=== PATIENT | female | born 1965 | race Caucasian/White ===

== ENCOUNTER 2020-06-12 08:07 | Outpatient (NON) | payer OTHER, SELFPAY ==
[2020-06-12 19:22] LABS: SARS-CoV-2 RNA PCR Negative
== END 2020-06-12 08:08 ==
PROVIDERS: Visit Provider Nurse Practitioner Family
DX: R68.89 Other general symptoms and signs (principal)
CPT/HCPCS: 87635; C9803; U0003

== ENCOUNTER 2021-06-01 15:04 | Outpatient (CLI) | payer OTHER, SELFPAY ==
--- NOTE | ~2021-06-01 | XR_ITS ---
XR hip LT min 2V DATE: 06/01/2021 15:20 INDICATION: Left hip pain, groin pain, burning TECHNIQUE: AP, lateral and crosstable lateral views of left hip COMPARISON: None FINDINGS: There is minimal osteoarthritic spurring but relative preservation of joint space at the le ft hip. No fracture, dislocation, avascular necrosis or bone destruction. The pubic symphysis and sacroiliac joints are intact. IMPRESSION: Mild left hip osteoarthritis Reviewed, dictated and finalized at location A.
== END 2021-06-01 15:05 | disposition home or self-care (01) ==
PROVIDERS: PCP Internal Medicine; Visit Provider Internal Medicine
DX: M16.12 Unilateral primary osteoarthritis, left hip (principal)
CPT/HCPCS: 73502

== ENCOUNTER 2022-03-17 10:06 | Outpatient (CLI) | payer OTHER, SELFPAY ==
[2022-03-17 10:58] LABS: Anion Gap 6 mmol/L (8-16); Blood Urea Nitrogen 19 mg/dL (7-17); Calcium 9.3 mg/dL (8.4-10.2); Carbon Dioxide 27 mmol/L (22-30); Chloride 104 mmol/L (98-107); Estimated Glomerular Filt Rate > 60; Glucose 106 mg/dL (65-110); Potassium 4.4 mmol/L (3.4-5.0); Sodium 137 mmol/L (137-145)
== END 2022-03-17 10:07 | disposition home or self-care (01) ==
LOC: ANHLAB 10:07
PROVIDERS: PCP Internal Medicine; Visit Provider Internal Medicine
DX: R25.2 Cramp and spasm (principal); E55.9 Vitamin D deficiency, unspecified; L65.9 Nonscarring hair loss, unspecified
CPT/HCPCS: 36415; 80048; 82306; 84443

== ENCOUNTER 2022-09-06 09:21 | Outpatient (CLI) | payer OTHER, SELFPAY ==
[2022-09-06 09:59] LABS: Alanine Aminotransferase 33 U/L (6-35); Albumin Level 4.5 g/dL (3.5-5.1); Alkaline Phosphatase 78 U/L (38-126); Anion Gap 10 mmol/L (8-16); Aspartate Amino Transferase 34 U/L (14-36); Bilirubin,Total 0.9 mg/dL (0.2-1.3); Blood Urea Nitrogen 19 mg/dL (7-17); Calcium 9.3 mg/dL (8.4-10.2); Carbon Dioxide 28 mmol/L (22-30); Chloride 103 mmol/L (98-107); Cholesterol 185 mg/dL (0-200); Estimated Glomerular Filt Rate > 60; Glucose 95 mg/dL (65-110); HDL Direct 90 mg/dL; Potassium 4.2 mmol/L (3.4-5.0); Sodium 141 mmol/L (137-145); Triglycerides 110 mg/dL (<150)
[2022-09-06 10:10] LABS: LDL Cholesterol Direct 71 mg/dL
[2022-09-06 10:27] LABS: Vitamin D 25 Hydroxy 31.6 ng/mL
== END 2022-09-06 09:22 | disposition home or self-care (01) ==
PROVIDERS: PCP Internal Medicine; Visit Provider Internal Medicine
DX: E78.5 Hyperlipidemia, unspecified (principal); Z79.899 Other long term (current) drug therapy; E55.9 Vitamin D deficiency, unspecified
CPT/HCPCS: 36415; 80053; 80061; 82306

== ENCOUNTER 2023-03-17 08:10 | Outpatient (CLI) | payer OTHER, SELFPAY ==
[2023-03-17 10:02] LABS: Alanine Aminotransferase 43 U/L (6-35); Albumin Level 4.6 g/dL (3.5-5.1); Alkaline Phosphatase 62 U/L (38-126); Anion Gap 4 mmol/L (8-16); Aspartate Amino Transferase 36 U/L (14-36); Bilirubin,Total 0.9 mg/dL (0.2-1.3); Blood Urea Nitrogen 15 mg/dL (7-17); Calcium 9.4 mg/dL (8.4-10.2); Carbon Dioxide 32 mmol/L (22-30); Chloride 104 mmol/L (98-107); Cholesterol 195 mg/dL (0-200); Estimated Glomerular Filt Rate > 60; Glucose 98 mg/dL (65-110); HDL Direct 57 mg/dL; Potassium 4.4 mmol/L (3.4-5.0); Sodium 140 mmol/L (137-145); Triglycerides 80 mg/dL (<150)
[2023-03-17 10:12] LABS: LDL Cholesterol Direct 104 mg/dL
== END 2023-03-17 08:11 | disposition home or self-care (01) ==
PROVIDERS: PCP Internal Medicine; Visit Provider Nurse Practitioner Family
DX: Z00.00 Encounter for general adult medical examination without abnormal findings (principal); Z79.899 Other long term (current) drug therapy; E78.5 Hyperlipidemia, unspecified
CPT/HCPCS: 36415; 80053; 80061

== ENCOUNTER 2023-09-27 08:50 | Outpatient (CLI) | payer OTHER, SELFPAY ==
[2023-09-27 09:42] LABS: Alanine Aminotransferase 26 U/L (6-35); Albumin Level 4.4 g/dL (3.5-5.1); Alkaline Phosphatase 88 U/L (38-126); Anion Gap 7 mmol/L (8-16); Aspartate Amino Transferase 33 U/L (14-36); Bilirubin,Total 0.8 mg/dL (0.2-1.3); Blood Urea Nitrogen 18 mg/dL (7-17); Calcium 9.4 mg/dL (8.4-10.2); Carbon Dioxide 29 mmol/L (22-30); Chloride 105 mmol/L (98-107); Cholesterol 204 mg/dL (0-200); Estimated Glomerular Filt Rate > 60; Glucose 100 mg/dL (65-110); HDL Direct 84 mg/dL; Potassium 4.8 mmol/L (3.4-5.0); Sodium 141 mmol/L (137-145); Triglycerides 82 mg/dL (<150)
[2023-09-27 09:52] LABS: LDL Cholesterol Direct 91 mg/dL
[2023-09-27 10:00] LABS: Vitamin D 25 Hydroxy 34.7 ng/mL
== END 2023-09-27 08:51 | disposition home or self-care (01) ==
LOC: ANHLAB 08:52
PROVIDERS: PCP Nurse Practitioner; Visit Provider Nurse Practitioner
DX: E78.5 Hyperlipidemia, unspecified (principal); E55.9 Vitamin D deficiency, unspecified
CPT/HCPCS: 36415; 80053; 80061; 82306

== ENCOUNTER 2024-01-17 17:15 | Emergency (ER) | payer OTHER, SELFPAY ==
[2024-01-17] VITALS (8 sets, daily range): BP systolic 138–164; BP diastolic 87–99; PULSE 78–87; RESP 12–20; TEMP 36.3; O2SAT 97–100
--- NOTE | ~2024-01-17 | XR_ITS ---
EXAMINATION: XR chest 1V DATE: 01/17/2024 19:24 INDICATION: Headache. Weakness. TECHNIQUE: A single frontal view of the chest was obtained. COMPARISON: None. FINDINGS: There is no pneumonia, pleural effusion, or pneumothorax. The heart size is normal. IMPRESSION: 1. No acute cardiopulmonary disease. Reviewed, dictated and finalized at location E. BURNER SUPERVISOR
--- NOTE | ~2024-01-17 | CT_ITS ---
EXAMINATION: CT brain wo con DATE: 01/17/2024 19:20 INDICATION: Headache. TECHNIQUE: Computed tomography (CT) of the head was performed without intravenous contrast. The mA wa s adjusted according to patient size. Iterative reconstruction technique was employed. The dose-lengt h product was 605.33 mGy-cm. COMPARISON: None FINDINGS: There is no intracranial hemorrhage, acute infarction, or abnormal intracranial mass lesion . The ventricles are normal in size. There is mild mucosal thickening in the paranasal sinuses. The o rbits are normal. The mastoid air cells are normal. IMPRESSION: 1. Normal brain. Reviewed, dictated and finalized at location E. WRITERS FUNCTIONAL TESTER IMPRESSION: 1. Normal brain.
--- NOTE | 2024-01-17 18:49 | ED.GENADULT ---
HPI - General Adult General Chief complaint: Recheck/Abnormal Lab/Rx Stated complaint: BACK S/P HIP INJECTION,NAUSEA,SHAKEY,VISION CHANGES Time Seen by Provider: 01/17/24 18:49 Source: patient Mode of arrival: ambulatory Limitations: no limitations History of Present Illness HPI narrative: 58 years old white female drove herself to the emergency room complaining of sudden onset of headache, blurry vision, often on nausea, shaky feeling and ?a very feeling all over started 1 hour after having hip cortisone shot yesterday noon. Patient had 5 previous cortisone shot before without any complication. Patient have a lot of stress at work. She denies any fever, chills, vomiting, chest pain, shortness of breath or back pain. History of hyperlipidemia, does not smoke cigarettes or marijuana, drinks occasionally. She denies any focal neuro deficit. Currently her symptoms are much better than yesterday, are improving. Related Data Home Medications Medication Instructions Recorded Confirmed calcium carbonate 600 mg-vitamin cap PO BID 06/01/21 03/21/23 D3 5 mcg (200 unit) capsule melatonin 10 mg capsule 10 mg PO QHS 06/01/21 03/21/23 acetaminophen 325 mg tablet 325 mg PO Q6H PRN 10/18/21 03/21/23 (Tylenol) Allergies Allergy/AdvReac Type Severity Reaction Status Date / Time Penicillins Allergy Unknown Unknown Verified 01/17/24 19:35 Sulfa (Sulfonamide Allergy Unknown Unknown Verified 01/17/24 19:35 Antibiotics) Tetanus Vaccines and Toxoid Allergy Unknown Unknown Verified 01/17/24 19:35 Review of Systems Review of Systems: All systems reviewed & are unremarkable except as noted in HPI and below PMFSH Family History Family History Mother Hypertension Father Family history of lung cancer Other Family history of malignant neoplasm of cervix Family history of throat cancer Social History Social History Smoking status: Never smoker Second hand tobacco smoke exposure: Yes Alcohol intake: current Drinks per week: 6 Alcohol use details: wine Substance use: never Substance use type: does not use Lack of Transportation: No Lack of Food: Never True Current Housing: I Have Housing Concerned About Future Housing: No Difficulty Paying Gas/Electric Bills: No Difficulty Paying for Meds: No Currently Unemployed: No Education: Associate Degree Difficulty w/ Childcare or Family Care: No Exam Narrative: General appearance: Well-developed, well-nourished Skin: Normal color Head: Normocephalic, nontraumatic Eyes: Clear conjunctiva ENT: Oropharynx normal, ears normal, nose normal Neck: Supple, nontender Chest and respiratory: Airway patent, no respiratory distress, no accessory muscle use Heart: Regular rate/rhythm Abdomen: Soft, nontender, no organomegaly, quiet bowel sounds Vascular: Normal peripheral pulses, normal capillary refill. Musculoskeletal: Normal range of motion, nontender back Neurologic: Alert and oriented ?3, TRAFFIC AGENT is normal as tested, no gross motor deficit Course Vital Signs Vital signs: Vital Signs Temperature 36.3 C L 01/17/24 17:17 Pulse Rate 87 01/17/24 17:17 Respiratory Rate 01/17/24 17:17 Blood Pressure 164/91 H 01/17/24 17:17 Pulse Oximetry 100 01/17/24 17:17 Oxygen Delivery Room Air 01/17/24 17:17 Temperature 36.3 C L 01/17/24 17:17 Pulse Rate 87 01/17/24 17:17 Respiratory Rate 20 01/17/24 17:17 Blood Pressure 164/91 H 01/17/24 17:17 Pulse Oximetry 100 01/17/24 17:17 Oxygen Delivery Room Air 01/17/24 17:17 Medical Decision
--- NOTE | 2024-01-17 18:50 | ECG_ITS ---
Measurements Intervals [place] Rate: 82 P: 28 MA: 131 QRS: -1 QRSD: 85 T: 30 QT: 354 QTc: 414 Interpretive Statements SINUS RHYTHM NORMAL ECG NO PREVIOUS ECG AVAILABLE FOR COMPARISON Electronically Signed On 01-18-2024 12:19:08 BOILER OR ENGINE OPERATOR by Hugo Iyer M.D.
[2024-01-17 19:23] LABS: Appearance Urine Clear (Clear); Bacteria Urine None Seen /hpf; Bilirubin Urine Negative (Negative); Blood Urine Negative (Negative); Color Urine Yellow (Yellow); Glucose Urine UA Negative (Negative); Ketones Urine Negative (Negative); Leukocyte Esterase Ur Trace LEU/UL (Negative); Nitrate Urine Negative (Negative); Non Pathogenic Casts 0-2; Protein Urine Negative (Negative); RBC Urine 0-2 /hpf (0-2); Specific Grav Ur 1.006 (1.001-1.035); Squamous Epithelial Cell Urine None seen /hpf (Few); Urobilinogen Urine 0.2 mg/dL (<2.0); WBC Urine 0-5 /hpf
[2024-01-17 19:24] LABS: Add Urine Microscopic? YES; Basophils Percent Auto 0.2 % (0.2-1.2); Hematocrit 43.2 % (37.0-47.0); Hemoglobin 14.3 g/dL (12.0-15.0); Immature Granulocyte Absolute 0.09 K/mm3 (0.00-0.031); Immature Granulocyte Percent A 0.7 % (0-0.5); Lymphocytes Absolute Auto 1.27 K/mm3 (0.9-3.2); Lymphocytes Percent Auto 10.1 % (18.3-44.2); Mean Corpuscular HGB Conc 33.1 g/dl (32-36); Mean Corpuscular Hemoglobin 31.3 pg (26-34); Mean Corpuscular Volume 94.5 fl (80-100); Mean Platelet Volume 9.8 fl (7.4-10.4); Monocytes Absolute Auto 0.5 K/mm3 (0.1-0.6); Monocytes Percent Auto 3.6 % (2.6-8.5); Neutrophils Absolute Auto 10.8 K/mm3 (1.3-6.7); Neutrophils Percent Auto 85.4 % (45.5-73.1); Platelet Count Result 215 k/mm3 (150-375); Red Blood Count 4.57 M/mm3 (4.2-5.4); Red Cell Distribution Width 12.6 % (11.5-14.5); White Blood Count 12.6 K/mm3 (4.5-10.0)
[2024-01-17] MEDS: SODIUM CHLORIDE 0.9% IV 1,000 ML 999 ML IV CONT (19:36)
[2024-01-17 19:38] LABS: Alanine Aminotransferase 42 U/L (6-35); Albumin Level 5.1 g/dL (3.5-5.1); Alkaline Phosphatase 56 U/L (38-126); Anion Gap 10 mmol/L (8-16); Aspartate Amino Transferase 43 U/L (14-36); Bilirubin,Total 1.1 mg/dL (0.2-1.3); Blood Urea Nitrogen 23 mg/dL (7-17); Calcium 10.1 mg/dL (8.4-10.2); Carbon Dioxide 24 mmol/L (22-30); Chloride 104 mmol/L (98-107); Creatine Kinase 61 U/L (30-135); Estimated CRCL calculation 64 ml/min; Estimated Glomerular Filt Rate > 60; Glucose 112 mg/dL (65-110); Potassium 4.3 mmol/L (3.4-5.0); Sodium 138 mmol/L (137-145)
== END 2024-01-17 20:36 | disposition home or self-care (01) ==
PROVIDERS: Emergency Provider Emergency Medicine; PCP Nurse Practitioner
DX: R51.9 Headache, unspecified (principal)
CPT/HCPCS: 36415; 70450; 71045; 80053; 81001; 82550; 85025; 93005; 96360; 99284; J7030

== ENCOUNTER 2024-03-25 12:31 | Outpatient (CLI) | payer OTHER, SELFPAY ==
[2024-03-25 13:05] LABS: Basophils Percent Auto 0.3 % (0.2-1.2); Eosinophils Percent Auto 0.6 % (0-4.4); Hematocrit 43.3 % (37.0-47.0); Hemoglobin 14.6 g/dL (12.0-15.0); Immature Granulocyte Absolute 0.03 K/mm3 (0.00-0.031); Immature Granulocyte Percent A 0.5 % (0-0.5); Lymphocytes Absolute Auto 1.83 K/mm3 (0.9-3.2); Lymphocytes Percent Auto 28.8 % (18.3-44.2); Mean Corpuscular HGB Conc 33.7 g/dl (32-36); Mean Corpuscular Hemoglobin 31.9 pg (26-34); Mean Corpuscular Volume 94.5 fl (80-100); Mean Platelet Volume 9.6 fl (7.4-10.4); Monocytes Absolute Auto 0.5 K/mm3 (0.1-0.6); Monocytes Percent Auto 8.3 % (2.6-8.5); Neutrophils Absolute Auto 3.9 K/mm3 (1.3-6.7); Neutrophils Percent Auto 61.5 % (45.5-73.1); Platelet Count Result 173 k/mm3 (150-375); Red Blood Count 4.58 M/mm3 (4.2-5.4); Red Cell Distribution Width 11.9 % (11.5-14.5); White Blood Count 6.4 K/mm3 (4.5-10.0)
[2024-03-25 13:18] LABS: Alanine Aminotransferase 33 U/L (6-35); Albumin Level 4.9 g/dL (3.5-5.1); Alkaline Phosphatase 60 U/L (38-126); Amylase 58 U/L (30-110); Anion Gap 9 mmol/L (4-12); Aspartate Amino Transferase 42 U/L (14-36); Bilirubin,Total 1.3 mg/dL (0.2-1.3); Blood Urea Nitrogen 7 mg/dL (7-17); Calcium 10.1 mg/dL (8.4-10.2); Carbon Dioxide 27 mmol/L (22-30); Chloride 104 mmol/L (98-107); Estimated Glomerular Filt Rate > 60; Glucose 99 mg/dL (65-110); Lipase 108 U/L (23-300); Potassium 3.9 mmol/L (3.4-5.0); Sodium 140 mmol/L (137-145)
== END 2024-03-25 12:32 | disposition home or self-care (01) ==
PROVIDERS: PCP Nurse Practitioner; Visit Provider Nurse Practitioner Family
DX: R10.9 Unspecified abdominal pain (principal); R19.7 Diarrhea, unspecified
CPT/HCPCS: 36415; 80053; 82150; 83690; 85025

== ENCOUNTER 2024-03-28 13:09 | Outpatient (CLI) | payer OTHER, SELFPAY ==
[2024-04-01 16:54] LABS: Rotavirus Stool Not Detected
[2024-04-01 17:03] LABS: Norovirus RNA PCR, Stool Not Detected
== END 2024-03-28 13:10 | disposition home or self-care (01) ==
LOC: ANHLAB 13:10
PROVIDERS: PCP Nurse Practitioner; Visit Provider Nurse Practitioner Family
DX: R11.10 Vomiting, unspecified (principal); R19.7 Diarrhea, unspecified; R10.9 Unspecified abdominal pain
CPT/HCPCS: 87045; 87177; 87209; 87425; 87427; 87449; 87798; 89055

== ENCOUNTER 2024-04-24 08:28 | Outpatient (CLI) | payer OTHER, SELFPAY ==
--- NOTE | ~2024-04-24 | CT_ITS ---
CT of the Abdomen and Pelvis: Indication: Abdominal pain Technique: 2.5 mm axial scans were obtained through the abdomen and pelvis following intravenous adm inistration of 100 cc of Omnipaque 350. Dose reduction technique was used on this scan by utilizing a utomated exposure control and iterative reconstruction technique. The dose-length product (DLP) was 4 26.38 mGy-cm. Findings: Scans through the lung bases are unremarkable. The liver, spleen, pancreas, gallbladder, adrenals and kidneys are within normal limits. No evidence of aortic aneurysm. 1.3 cm peripherally calcified splenic artery aneurysm noted. No lymphadenopathy. No bowel obstruction or bowel wall thickening. There is no evidence to suggest acute appendicitis. Images through the pelvis were performed. Urinary bladder unremarkable. No pelvic mass seen. No ascit es. Impression: No acute abnormality. 1.3 cm peripherally calcified splenic artery aneurysm. Reviewed, dictated and finalized at [facility]. Impression: No acute abnormality. 1.3 cm peripherally calcified splenic artery aneurysm.
== END 2024-04-24 08:29 | disposition home or self-care (01) ==
PROVIDERS: PCP Nurse Practitioner Family; Visit Provider Nurse Practitioner Family
DX: I72.8 Aneurysm of other specified arteries (principal); R11.10 Vomiting, unspecified; R19.7 Diarrhea, unspecified
CPT/HCPCS: 74177; Q9967

== ENCOUNTER 2025-04-11 08:41 | Outpatient (CLI) | payer OTHER, SELFPAY ==
--- OUTSIDE RECORDS SUMMARY | 2025-04-11 08:50 | XMS_ITS | Clinical Summary ---
Author Organization [facility] Address [address] [address] Care Team Providers Care Applique Cutter Name Role Phone Foreign Hamm MD Primary Care Provider [phone] Source Comments [facility],non-owned Affiliates and Associated Physician Practices is amultiple site organization consisting of ambulatory clinics and hospital sitesin [place], [place], [place] and [place]. This disclosure is being madepursuant to the Care Everywhere program and may not contain all information available regarding this patient. Last updated 18.[facility] Allergies Active Allergy Reactions Criticality Noted Date Comments Penicillins 07/21/2017 Sulfa Drugs 07/21/2017 Tetanus Toxoid 07/21/2017 Medications * Be aware that medications may not be up to date on this document. Alwaysverify current medications with the patient. Calcium Citrate-Vitamin D (CALCIUM + D PO) Act ashkan Family History Medical History Relation Name Comments Cancer - Lung Father Hypertension Mother Relation Name Status Comments Father Mother Social History Tobacco Use Types Packs/Day Years Used Date Smoking Tobacco: Never Smokeless Tobacco: Never Comments No Sex and Gender Information Value Date Recorded Sex Assigned at Not on file Legal Sex Female 7:05 AM CDT Gender Identity Not on file Sexual Orientation Not on file Last Filed Vital Signs Vital Sign Reading Time Taken Comments Blood Pressure 126/82 07/21/2017 10:14 AM CDT Pulse 84 07/21/2017 10:14 AM CDT Temperature 37.1 C (98.7 F) 07/21/2017 10:14 AM CDT Respiratory Rate 16 07/21/2017 10:14 AM CDT Oxygen Saturation 97% 07/21/2017 10:14 AM CDT Inhaled Oxygen Concentration - - Weight 70.3 kg (155 lb) 07/21/2017 10:14 AM CDT Height 162.6 cm (5' 4 ) 07/21/2017 10:14 AM CDT Body Mass Index 26.61 07/21/2017 10:14 AM CDT Plan of Treatment Health Maintenance Due Date Last Done Comments COLOGUARD (AGES 45-75) - COL ON CA SCREENING 1963 COLON MONITORING 1963 COLONOSCOPY - COLON CA SCREENING 1963 CT COLONOGRAPHY - COLON CA SCREENING 1963 Colorectal Cancer Screening 1963 FIT - COLON CA SCREENING 1963 FLEX SIG - COLON CA SCREENING 1963 LIPID TESTING 1963 MAMMOGRAM 1963 HIV SCREENING 1978 HEPATITIS C SCREENING 10/22/1981 DTAP/TDAP/TD VACCINES (1 - Tdap) 1982 PNEUMOCOCCAL VACCINE 50+ (1 of 1 - PCV) 2013 ZOSTER VACCINE (1 of 2) 2013 SCREENING FOR DIABETES 07/21/2017 COVID-19 VACCINE (1 - 2023-2 5 season) 2024 DEPRESSION SCREENING 11/27/2024 INFLUENZA VACCINE (Season Ended) 2025 Respiratory Syncytial Virus (RSV) Vaccine Pt: or over 60 yrs (1 - 1-dose 75+ series) 2038 HEPATITIS B VACCINE Aged Out No longe r eligible based on patient's age to complete this topic HIB VACCINE Aged Out No longer eligi ble based on patient's age to complete this topic HPV VACCINE Aged Out No longer eligi ble based on patient's age to complete this topic MENINGOCOCCAL (Group B) VACC INE SHARED DECISION-MAKING Aged Out No longer eligibl e based on patient's age to complete this topic MENINGOCOCCAL GROUPS A/C/Y/W VACCINE Aged Out No longer eligible b ased on patient's age to complete this topic Insurance AETNA Care Teams Applique Cutter Relationship Specialty Start Date End Date Foreign Hamm MD [address] [place] [address] PCP - General Family Medicine 07/21/17
--- OUTSIDE RECORDS SUMMARY | 2025-04-11 08:50 | XMS_ITS | Clinical Summary ---
Author Organization [facility] Address [address] [place] [address] Care Team Providers Care Sheet Manufacturing Supervisor Name Role Phone Hodan Ponce NP Primary Care Provider [phone] Allergies Active Allergy Reactions Criticality Noted Date Comments Penicillins Other (See comments) Low 07/18/2012 As a child-unknown Sulfa (Sulfonamide Antibiotics) Hives,Rash Medium 07/18/2012 Tetanus Immune Globulin Other (See comments) Low As a child-unknown Medications calcium citrate-vitamin D3 (CITRACAL+D) 315-200 mg-unit per tablet Take by mouth. Active meloxicam (MOBIC) 7.5 mg tablet 12/20/2018 Active melatonin 10 mg tablet extended release Take by mouth. Active acetaminophen (TYLENOL) 500 mg tablet Take 1 tablet (500 mg total) by mouth every 6 (six) hours as needed for pain Active atorvastatin (LIPITOR) 10 mg tablet 08/24/2021 Active cyclobenzaprine (FLEXERIL) 10 mg tablet 10 MG ORALLY THREE TIMES A DAY NEEDED FOR MUSCLE SPASM 09/29/2023 Active fezolinetant (VEOZAH) tablet tabletIndication s:Vasomotor symptoms due to menopause Take 1 tablet (45 mg total) by mouth daily 90 tablet 3 10/08/2024 Active Active Problems Problem Noted Date Diagnosed Date Headache(784.0) 08/08/2017 Cervical radiculopathy 10/18/2016 Neck pain 10/18/2016 Shoulder pain 10/17/2016 Dermatitis of eyelid 01/17/2014 Encounter for gynecological examination without abnormal finding 10/21/2013 Osteoporosis 10/21/2013 Screening for endocrine/metabolic/immunity disor ders 10/21/2013 Thyroid disorder screening 10/21/2013 Encounters Date Type Department Care Team Description 02/20/2025 8:26 AM CDT - 02/20/2025 11:59 PM CDT Hospital Encounter [facility] ([facility]) [address] [id number] Screening mammogram, encounter for Discharge Disposition: Discharge to home or self care from Last 3 Months Immunizations Immunization Administration Dates Next Due Influenza, Quadrivalent, Lela l Culture-based MDCK, Preservative Free, Antibiotic Free, Intramuscular 08/27/2019,09/05/2018,09/04/2018,10/25 Influenza, Quadrivalent, Spl it, Preservative Free, Intramuscular 08/24/2020,08/22/2016 Influenza, Trivalent, Preser vative Free, Intramuscular 07/28/2016,08/31/2015 Surgical History Surgery Date Site/Laterality Comments [place] NEURP MAJOR PRPH NRV ARM/LEG OPN OTH/THN SPEC Neuroplasty Ulnar Nerve - (Added by TW Conv) ULNAR NERVE TRANSPOSITION 11/27/2014 - 11/26/2015 Right FLUORO GUIDED ASPIRATION OR INJECTION LARGE JOINT LEFT 01/11/2019 Left FL FLUORO GUIDED INJECTION HIP LEFT 04/15/2020 Left FL FLUORO GUIDED INJECTION HIP LEFT 04/07/2021 Left KNEE ARTHROSCOPY W/ LATERAL RELEASE Right ulnar nerve transposition 06-12-2015 FL FLUORO GUIDED INJECTION HIP LEFT 12/01/2022 Left FLUORO GUIDED ASPIRATION OR INJECTION LARGE JOINT LEFT 01/16/2024 Left Medical History Medical History Date Comments Pain in shoulder Shoulder joint pain - (Added by TW Conv) Personal history of healed t raumatic fracture History of fracture of wrist - (Added by TW Conv) Neuromuscular disorder (HCC) Urinary tract infection Labral tear of hip joint High cholesterol Family History Medical History Relation Name Comments Heart disease Brother Adalberto Sams Jr. Hyperlipidemia Brother Adalberto Sams Jr. Hypertension Brother Adalberto Sams Jr. Family hist ory of hypertension - (Added by TW Conv) Breast cancer Cousin Family history of malignant neoplasm of breast - (Added by TW Conv) Cancer Father Adalberto Sams, Sr. Lung cancer Father Adalberto Sams, Sr. Family hist ory of lung cancer - (Added by TW Conv) Cancer Maternal Grandfather Blair Tay Heart attack Maternal Grandmother Elvira Tay Heart disease Maternal Grandmother Elvira Tay Arthritis Mother Elvira Tay Hearing loss Mother Elvira Tay Heart disease Mother Elvira Tay Family histo ry of cardiovascular disease - (Added by TW Conv)/Family history of cardiac disorder - (Added by TW Conv) Hyperlipidemia Mother Elvira Tay Hypertension Mother Elvira Tay Family histor y of hypertension - (Added by Conv) Lung cancer Mother Elvira Tay Heart disease Other 1 Family history of cardiac disorder - Relation: Grandparent (Added by TW Conv) Ovarian cancer Other 2 Family histor y of ovarian cancer - Relation: Grandmother (Added by Conv) Heart attack Paternal Grandfather Ino Sams Cancer Paternal Grandmother Mei Sams Relation Name Status Comments Brother Adalberto Sams Jr. Cousin Father Adalberto Latrell, Sr. Maternal Grandfather Blair Tay Maternal Grandmother Elvira Tay Mother Elvira Tay Alive Other 1 Other 2 Paternal Grandfather Ino Latrell Paternal Grandmother Mei Sams Social History Tobacco Use Types Packs/Day Years Used Date Smoking Tobacco: Never Smokeless Tobacco: Never Alcohol Use Standard Drinks/Week Comments Yes 0 (1 standard drink = 0.6 oz pur e alcohol) AUDIT-C Answer Date Recorded Q1: How often do you have a drink containing alc ohol? 2-4 times a month 10/08/2024 Q2: How many drinks containi ng alcohol do you have on a typical day when you are drinking? 1 or 2 10/08/2024 Q3: How often do you have si x or more drinks on one occasion? 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 Not on file Obstetrics History Para Term AB IAB SAB Ectopic Multiple Livin g Live Births 0 0 0 0 0 0 0 0 0 0 0 Comments 3 stepchildren Last Filed Vital Signs Vital Sign Reading Time Taken Comments Blood Pressure 145/89 10/08/2024 12:43 PM FORENSIC PSYCHOLOGIST Pulse 76 10/08/2024 12:43 PM FORENSIC PSYCHOLOGIST Temperature - - Respiratory Rate 16 12/01/2022 8:22 AM FORENSIC PSYCHOLOGIST Oxygen Saturation 100% 12/01/2022 9:04 AM FORENSIC PSYCHOLOGIST Inhaled Oxygen Concentration - - Weight 71.6 kg (157 lb 12.8 oz) 024 12:43 PM FORENSIC PSYCHOLOGIST Height 162.6 cm (5' 4.02 ) 10/08/2024 1 2:43 PM FORENSIC PSYCHOLOGIST Body Mass Index 27.07 10/08/2024 12:43 PM FORENSIC PSYCHOLOGIST Plan of Treatment Health Maintenance Due Date Last Done Comments Colon Cancer Screening-Colonoscopy 1963 Depression Screening 1963 Hepatitis C Screening 1963 DTaP/Tdap/Td Vaccine (1 - Tdap) 1974 Hepatitis B Screening 1981 Zoster Vaccine (1 of 2) 2013 Regular Well Visit/Exam 18-64 01/15/2020 01/15/2019 Influenza Vaccine (Season Ended) 2025 08/24/2020, 08/27/2019, 09/05/2018, Additional history exists Cervical Cancer Screening 10/08/20252023, 10/08/2024, 01/09/2018 Breast Cancer Screening-Mammogram 02/20/2026 02/20/2025, 01/04/2024, 12/22/2022, Additional history exists Pneumococcal vaccine <65 Aged Out No longer eligible based on patient's age to complete this topic Procedures Procedure Name Priority Date/Time Associated Diagnosis Comments SCREENING MAMMOGRAM BILATERAL W TRAE Schedule Routine, Read Routine (OP Routine) 02/20/2025 8:40 AM CDT Screening mammogram, encounter for HIGH RISK HPV DNA DETECTION WITH GENOTYPING Routine 10/08/2024 1:49 PM FORENSIC PSYCHOLOGIST Encounter for annual routine gynecological examination from Last 3 Months or Most Recently Relevant to Health Maintenance Results * Screening Mammogram Bilateral W Trae (02/20/2025 8:40 AM CDT) Anatomical Region Laterality Modality Breast Bilateral Mammography Narrative 02/20/2025 12:41 PM CDT Mammogram Technique: Bilateral Digital Breast Tomosynthesis, Bilateral C-view 2D Screening mammogram. Views obtained: bilateral craniocaudal and bilateral mediolateral oblique. Computer Aided Detection was performed. Mammogram Findings: The present examination has been compared to prior imaging studies performed at [facility] on 11/11/2021, 12/22/2022 and 01/04/2024. There are scattered areas of fibroglandular density. There is no suspicious abnormality in either breast. Impression: There is no mammographic evidence of malignancy. Annual screening mammography is recommended. OVERALL FINAL ASSESSMENT: BI-RADS CATEGORY 1: Negative. Procedure Note Jhonathan Hoffman MD - 02/20/2025 Mammogram Technique: Bilateral Digital Breast Tomosynthesis, Bilateral C-view 2D Screening mammogram. Views obtained: bilateral craniocaudal and bilateral mediolateral oblique. Computer Aided Detection was performed. Mammogram Findings: The present examination has been compared to prior imaging studies performed at [facility] on 11/11/2021, 12/22/2022 and 01/04/2024. There are scattered areas of fibroglandular density. There is no suspicious abnormality in either breast. Impression: There is no mammographic evidence of malignancy. Annual screening mammography is recommended. OVERALL FINAL ASSESSMENT: BI-RADS CATEGORY 1: Negative. us Self Screening Mammogram IMG MAMMO PROCEDURES Fi nal Result * High Risk HPV DNA Detection with Genotyping (Molecular component) (10/08/2024 1:49 PM FORENSIC PSYCHOLOGIST) HPV HR 16 Not Detected Not Detected [facility] HPV HR 18 Not Detected Not Detected [facility] HPV HR Non 16/18 Not Detected Not Detected [facility] Comment: Interpretive Data Nucleic acid amplification for detection of high-risk Human Papilloma virus (HPV) is performed by the Antonio Calil 6800 HPV test. This assay specifically detects HPV-16 and HPV-18 genotypes. The following HPV genotypes are detected as high-risk HPV: HPV-31, 33, 35, ,39, 45, 51, 52, 56, 58, 59, 66, and 68. This assay has been approved by the [place] Food and Drug Administration for detection of HPV in cervical specimens collected by a physician using an endocervical brush/spatula or cervical broom and placed in the ThinPrep Pap Test PreservCyt collection containers. The performance characteristics of this test have been verified by the [facility] Molecular Infectious Disease laboratory. Correlate with separately reported cytology results, as applicable. Interpretive data last revised 23 Endocervical 10/08/2024 1:49 PM FORENSIC PSYCHOLOGIST 10/09/2024 10:53 AM FORENSIC PSYCHOLOGIST Narrative [facility] - 10/10/2024 3:32 AM FORENSIC PSYCHOLOGIST Clinical history and diagnosis->postmenopausal Number of vials->1 Testing type->Screening Last menstrual period (date if known)->menopausal Lizbeth Miller MD LAB BODY FLUIDS AND STOOLS OR DERABLES Final Result Performing Organization Address City/State/[facility] Co de Phone Number [facility] [place] [address] [facility] from Last 3 Months or Most Recently Relevant to Health Maintenance Insurance [facility] [employer] HMO [facility] Care Teams Sheet Manufacturing Supervisor Relationship Specialty Start Date End Date Hodan Ponce NP [address] [id number] PCP - General Nurse Practitioner 10/08/24
--- OUTSIDE RECORDS SUMMARY | 2025-04-11 08:50 | XMS_ITS | Encounter Summary ---
Author Organization [facility] Address [address] [place] [address] Care Team Providers Care Morning News Producer Name Role Phone Foreign Hamm MD Primary Care Provider [phone] Bal Welch DO Primary Care Provider [phone] Bryant Wild SAMPLE WASHER Primary Care Provider Hodan Ponce SAMPLE WASHER Primary Care Provider [phone] Encounter Details Date Type Department Care Team (Late st Contact Info) Description 04/14/2020 Telephone [facility] Radiology [address] [place] [address] Vandana Abreu, VITALY Social History Tobacco Use Types Packs/Day Years Used Date Smoking Tobacco: Never Smokeless Tobacco: Never Alcohol Use Standard Drinks/Week Comments Yes 0 (1 standard drink = 0.6 oz pur e alcohol) Exercise Vital Sign Answer Date Recorde d Days of Exercise per Week 4 days 2018 Minutes of Exercise per Session 60 min 05/06/2019 Comments No Sex and Gender Information Value Date Recorded Sex Assigned at Not on file Legal Sex Female 12:57 AM BUILD TECHNICIAN Gender Identity Not on file Sexual Orientation Not on file 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 Not on file documented as of this encounter Plan of Treatment Not on file documented as of this encounter Visit Diagnoses Not on filedocumented in this encounter Care Teams Morning News Producer Relationship Specialty Start Date End Date Foreign Hamm MD [address] [place] [address] PCP - General 12/12/17 09/06/20 Bal Welch DO [address] [place] [address] PCP - General Internal Medicine 09/07/20 12/04/23 Bryant Wild NP [address] [address] PCP - General Nurse Practitioner 12/05/23 10/07/24 Hodan Ponce NP [address] [address] PCP - General Nurse Practitioner 10/08/24 documented as of this encounter
--- OUTSIDE RECORDS SUMMARY | 2025-04-11 08:50 | XMS_ITS | Referral Summary ---
Author Organization [facility] Address [address] [place] [id number] Care Team Providers Care Call Center Associate Name Role Phone Hodan Ponce NP Primary Care Provider [phone] Encounters Date Type Department Care Team Description 02/20/2025 8:26 AM CDT - 02/20/2025 11:59 PM CDT Hospital Encounter [facility] Breast [facility] ([facility]) [address] [place] [phone] Screening mammogram, encounter for Discharge Disposition: Discharge to home or self care from Last 3 Months Allergies Active Allergy Reactions Criticality Noted Date [...] disor ders 10/21/2013 Thyroid disorder screening 10/21/2013 Immunizations Immunization Administration Dates Next Due Influenza, Quadrivalent, Lela l Culture-based MDCK, Preservative Free, Antibiotic Free, Intramuscular 08/27/2019,09/05/2018,09/04/2018,10/25 Influenza, Quadrivalent, Spl it, Preservative Free, Intramuscular 08/24/2020,08/22/2016 Influenza, Trivalent, Preser vative Free, Intramuscular 07/28/2016,08/31/2015 Social History Tobacco Use Types Packs/Day Years [...] on file 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 Gender Identity Not on file Sexual Orientation Not on file 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 Not on file Last Filed Vital Signs Vital Sign Reading Time Taken Comments Blood Pressure 145/89 10/08/2024 12:43 PM WARD SECRETARY Pulse 76 10/08/2024 12:43 PM WARD SECRETARY Temperature - - Respiratory Rate 16 12/01/2022 8:22 AM WARD SECRETARY Oxygen Saturation 100% 12/01/2022 9:04 AM WARD SECRETARY Inhaled Oxygen Concentration - - Weight 71.6 kg (157 lb 12.8 oz) 024 12:43 PM WARD SECRETARY Height 162.6 cm (5' 4.02 ) 10/08/2024 1 2:43 PM WARD SECRETARY Body Mass Index 27.07 10/08/2024 12:43 PM WARD SECRETARY Plan of Treatment Not on file Procedures Procedure Name Priority Date/Time Associated Diagnosis Comments SCREENING MAMMOGRAM BILATERAL W TRAE Schedule Routine, Read Routine (OP Routine) 02/20/2025 8:40 AM CDT Screening mammogram, encounter for HIGH RISK HPV DNA DETECTION WITH GENOTYPING Routine 10/08/2024 1:49 PM WARD SECRETARY Encounter for annual routine gynecological examination from [...] compared to prior imaging studies performed at [facility] on 11/11/2021, 12/22/2022 and 01/04/2024. There are [...] compared to prior imaging studies performed at [facility] on 11/11/2021, 12/22/2022 and 01/04/2024. There are scattered areas of fibroglandular density. There is no suspicious abnormality in either breast. Impression: There is no mammographic evidence of malignancy. Annual screening mammography is recommended. OVERALL FINAL ASSESSMENT: BI-RADS CATEGORY 1: Negative. Self Screening Mammogram IMG MAMMO PROCEDURES Fi nal Result * High Risk HPV DNA Detection with Genotyping (Molecular component) (10/08/2024 1:49 PM WARD SECRETARY) HPV HR 16 Not Detected Not Detected [facility] HPV HR 18 Not Detected Not Detected TAMI [facility] HPV HR Non 16/18 Not Detected Not Detected TAMI [facility] Comment: Interpretive Data Nucleic acid amplification for detection of high-risk Human Papilloma virus (HPV) is performed by the Antonio Calli 6800 HPV test. This assay specifically detects [...] test have been verified by the [facility] Molecular Infectious Disease laboratory. Correlate with separately reported cytology results, as applicable. Interpretive data last revised 23 Endocervical 10/08/2024 1:49 PM WARD SECRETARY 10/09/2024 10:53 AM WARD SECRETARY Narrative [facility] - 10/10/2024 3:32 AM WARD SECRETARY Clinical history and diagnosis->postmenopausal Number of vials->1 Testing type->Screening Last menstrual period (date if known)->menopausal Lizbeth Miller MD LAB BODY FLUIDS AND STOOLS OR DERABLES Final Result [facility] Department [place] [address] [facility] from Last 3 Months or Most Recently Relevant to Health Maintenance Insurance [facility] H[facility] HMO Care Teams Call Center Associate Relationship Specialty Start Date End Date Hodan Ponce NP [address] [place] [address] PCP - General Nurse Practitioner 10/08/24
--- OUTSIDE RECORDS SUMMARY | 2025-04-11 08:50 | XMS_ITS | Encounter Summary ---
Author Organization [facility] Address [address] [place] [address] Care Team Providers Care Marble Carver Name Role Phone Foreign Hamm MD Primary Care Provider [phone] Bal Welch DO Primary Care Provider [phone] Bryant Wild ADVERTISER Primary Care Provider [phone] Hodan Ponce ADVERTISER Primary Care Provider [phone] Encounter Details Date Type Department Care Team (Late st Contact Info) Description 04/14/2020 Telephone [facility] [id number] [address] [place], [place] [id number] Vijaya Causey RT Social History Tobacco Use Types Packs/Day Years [...] on file 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 Gender Identity Not on file Sexual Orientation Not on file 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 Not on file documented as of this encounter Plan of Treatment Not on file documented as of this encounter Visit Diagnoses Not on filedocumented in this encounter Care Teams Marble Carver Relationship Specialty Start Date End Date Foreign Hamm MD [address] [place] [address] PCP - General 12/12/17 09/06/20 Bal Welch DO [address] [place] [address] PCP - General Internal Medicine 09/07/20 12/04/23 Bryant Wild NP [address] [address] PCP - General Nurse Practitioner 12/05/23 10/07/24 Hodan Ponce NP [address] [address] PCP - General Nurse Practitioner 10/08/24 documented as of this encounter
[2025-04-11 09:03] LABS: Basophils Percent Auto 0.3 % (0.2-1.2); Eosinophils Absolute Auto 0.3 K/mm3 (0-0.3); Hematocrit 42.4 % (37.0-47.0); Hemoglobin 13.9 g/dL (12.0-15.0); Immature Granulocyte Absolute 0.03 K/mm3 (0.00-0.031); Immature Granulocyte Percent A 0.5 % (0-0.5); Lymphocytes Absolute Auto 2.42 K/mm3 (0.9-3.2); Lymphocytes Percent Auto 42.1 % (18.3-44.2); Mean Corpuscular HGB Conc 32.8 g/dl (32-36); Mean Corpuscular Hemoglobin 31.1 pg (26-34); Mean Corpuscular Volume 94.9 fl (80-100); Mean Platelet Volume 9.1 fl (7.4-10.4); Monocytes Absolute Auto 0.4 K/mm3 (0.1-0.6); Monocytes Percent Auto 7.3 % (2.6-8.5); Neutrophils Absolute Auto 2.6 K/mm3 (1.3-6.7); Neutrophils Percent Auto 44.8 % (45.5-73.1); Platelet Count Result 142 k/mm3 (150-375); Red Blood Count 4.47 M/mm3 (4.2-5.4); Red Cell Distribution Width 12.1 % (11.5-14.5); White Blood Count 5.8 K/mm3 (4.5-10.0)
[2025-04-11 09:12] LABS: Alanine Aminotransferase 34 U/L (6-35); Albumin Level 4.5 g/dL (3.5-5.1); Alkaline Phosphatase 76 U/L (38-126); Anion Gap 5 mmol/L (4-12); Aspartate Amino Transferase 39 U/L (14-36); Bilirubin,Total 1.1 mg/dL (0.2-1.3); Blood Urea Nitrogen 17 mg/dL (7-17); Calcium 9.4 mg/dL (8.4-10.2); Carbon Dioxide 28 mmol/L (22-30); Chloride 106 mmol/L (98-107); Cholesterol 210 mg/dL (0-200); Estimated Glomerular Filt Rate > 60; Glucose 92 mg/dL (65-110); HDL Direct 98 mg/dL; Potassium 4.4 mmol/L (3.4-5.0); Sodium 139 mmol/L (137-145); Triglycerides 86 mg/dL (<150)
[2025-04-11 09:23] LABS: LDL Cholesterol Direct 85 mg/dL
[2025-04-11 09:28] LABS: Hemoglobin A1C 4.8 % (<5.7)
== END 2025-04-11 08:42 | disposition home or self-care (01) ==
PROVIDERS: PCP Nurse Practitioner Family; Visit Provider Nurse Practitioner Family
DX: Z00.00 Encounter for general adult medical examination without abnormal findings (principal); E78.5 Hyperlipidemia, unspecified
CPT/HCPCS: 36415; 80053; 80061; 83036; 85025